=== PATIENT | male | born 1995 | race Caucasian/White ===

== ENCOUNTER 2017-09-22 21:59 | Emergency (ER) | payer OTHER, SELFPAY ==
[~2017-09-22] VITALS: Ht 170.2 cm; Wt 54.5 kg
[2017-09-22] MEDS ORDERED: MORPHINE 4 MG/ML 1ML SYRINGE IV PRN (22:30)
[2017-09-22] MEDS ORDERED: NS 1,000 ML IV ONE (22:30)
[2017-09-22] MEDS ORDERED: ONDANSETRON 4MG/2ML VIAL (J2405) IV ONE (22:30)
[2017-09-22 23:11] LABS: BASO # 0.1 10^3/uL (0.0-0.2); BASO % 0.4 % (0.0-1.0); EOS # 0.1 10^3/uL (0.0-0.50); IMMATURE GRANULOCYTE % 0.3 % (0-0); LYMPH # 2.2 10^3/uL (1.5-6.5); LYMPH % 19.4 % (24.0-44.0); MEAN CORPUSCULAR VOLUME 91.3 fl (80.0-96.0); MONO # 0.8 10^3/uL (0.0-0.8); MONO % 6.6 % (0.0-5.0); NEUTROPHILS # 8.2 10^3/uL (1.8-7.7); NEUTROPHILS % 72.3 % (36.0-66.0); PLATELET COUNT, AUTOMATED 318 10^3/uL (150-450); RED CELL DISTRIBUTION WIDTH 12.5 % (11.5-14.5); WHITE BLOOD COUNT 11.3 10^3/uL (4.0-10.0)
[2017-09-22 23:21] LABS: INR 1.07
[2017-09-22 23:40] LABS: ALBUMIN 4.5 GM/DL (3.2-5.2); ALBUMIN/GLOBULIN RATIO 1.41 (1.00-1.93); ALKALINE PHOSPHATASE 80 U/L (45-117); ALT/SGPT 22 U/L (12-78); AMYLASE 59 U/L (25-115); ANION GAP 7 MEQ/L (8-16); AST/SGOT 13 U/L (7-37); BILIRUBIN,DIRECT 0.3 MG/DL (0.0-0.2); BILIRUBIN,TOTAL 1.4 MG/DL (0.2-1.0); BLOOD UREA NITROGEN 11 MG/DL (7-18); CALCIUM LEVEL 9.3 MG/DL (8.5-10.1); CARBON DIOXIDE LEVEL 27 MEQ/L (21-32); CHLORIDE LEVEL 108 MEQ/L (98-107); GLUCOSE, FASTING 114 MG/DL (70-105); POTASSIUM SERUM 3.7 MEQ/L (3.5-5.1); SODIUM LEVEL 142 MEQ/L (136-145); TOTAL PROTEIN 7.7 GM/DL (6.4-8.2)
[2017-09-22] MEDS ORDERED: ISOVUE-370 76% 100ML VIAL (Q9967) As Ordered ONE (23:42)
--- NOTE | 2017-09-23 01:00 | REPUSA ---
CLINICLAL HISTORY: Pain TECHNIQUE: Axial images, with sagittal and coronal reconstructions COMMENTS: The included bony structure is uniform density, with no evidence of destruction or mass. Ve rtebral bodies are intact in height, normally aligned, and reveal no significant end plate hypertrophy.There is no disc space narrowing, or evidence of disc her niation. The dorsal elements reveal no defect, deformity or degenerative change. No mass is seen and there is no foraminal or spinal canal impingement. IMPRESSION: Negative CT Spine Thank you for the referral of this patient.
[2017-09-23] MEDS ORDERED: NORCO 5/325MG TABLET (BULK FOR ED) PO ONE (01:30)
[2017-09-23] MEDS ORDERED: KEFL500C17 PO (01:30)
[2017-09-23] MEDS ORDERED: POLYSPORIN TOPICAL OINTMENT 15GM As Ordered ONE (02:04)
[2017-09-23 02:27] VITALS: BP 120/78
--- NOTE | 2017-09-23 07:44 | REPUSA ---
CLINICAL HISTORY: Chest, abdominal pain. TECHNIQUE: Multiple axial, sagittal and coronal CT images were obtained through the chest, abdomen an d pelvis with IV contrast material. COMMENTS: There is no evidence of pleural or parenchymal mass. There are no pleural effusions. There is no evid ence of hilar or mediastinal lymphadenopathy. Specifically, there is no evidence for paratracheal and supraclavicular adenopathy. There is no evidence for a chest or abdominal wall nodule or mass. The h eart and great vessels are within normal limits. The liver is of uniform attenuation without mass or defect. The gallbladder is within normal limits. There is no intrahepatic or extrahepatic biliary ductal dilatation. The spleen is normal. The pancrea s is of normal contour and attenuation characteristics. There is no evidence of adrenal mass. Both kidneys demonstrate prompt and equal nephrograms. The kidn eys are normal in size, shape and configuration. There is no evidence of renal mass. There is no hydr oureter or hydronephrosis. There is no bowel wall thickening. Sigmoid diverticulosis is present. No evidence for small or large bowel obstruction. There is no evidence of abdominal ascites or lymphadenopathy. There is no evidence of intrinsic or extrinsic bladder mass. There is no pelvic ascites or lymphadeno john. The bony structures are free of lytic or blastic lesions. IMPRESSION: No evidence of acute chest, abdominal or pelvic pathology. Thank you for your kind referral of this patient.
--- NOTE | 2017-09-23 11:08 | REP ---
Clinical: Trauma . Comparison: 08/23/2015 . Technique: Supine view of the chest. Findings: The mediastinum and cardiac silhouette are normal. The lung [place] are clear and without acute consolidation, effusion, or pneumothorax. The skeletal structures are intact and normal. Impression: 1. No acute cardiopulmonary process. Signed by Arben Kruse MD 09/23/2017 11:00 A
--- NOTE | 2017-09-23 11:09 | REP ---
Clinical: Trauma. Technique: AP and lateral views of the right and left foot. Findings: No acute fracture dislocation. Skeletal structures, joint spaces, and surrounding soft tissues appear normal. No subcutaneous emphysema or radiodense foreign body. Impression: Normal bilateral foot radiographs. Signed by Arben Kruse MD 09/23/2017 11:00 A
--- NOTE | 2017-09-23 11:10 | REP ---
Clinical: Trauma. Technique: AP and lateral views of the right and left tibia / fibula. Findings: No acute fracture dislocation. Skeletal structures, joint spaces, and surrounding soft tissues are normal for age. Incidental note is made of a 3 mm lytic cortical defect along the distal right fibular shaft which appears benign. Impression: No acute fracture or dislocation. Signed by Arben Kruse MD 09/23/2017 11:02 A
--- NOTE | 2017-09-23 11:12 | REP ---
Clinical: Trauma. Technique: Neutral and frog lateral views of the right and left femur. Findings: No acute fracture or dislocation. Skeletal structures, joint spaces, and surrounding soft tissues are normal. No subcutaneous emphysema or radiodense foreign body. Impression: No acute fracture or dislocation. Signed by Arben Kruse MD 09/23/2017 11:03 A
== END 2017-09-23 02:29 | disposition home or self-care (01) ==
LOC: M ED 21:59
DX: Z04.1 Encounter for examination and observation following transport accident (principal); S00.81XA Abrasion of other part of head, initial encounter; S80.811A Abrasion, right lower leg, initial encounter; S80.812A Abrasion, left lower leg, initial encounter; V03.10XA Pedestrian on foot injured in collision with car, pick-up truck or van in traffic accident, initial encounter; Y92.410 Unspecified street and highway as the place of occurrence of the external cause; Y93.89 Activity, other specified; Y99.8 Other external cause status
CPT/HCPCS: 70450; 71010; 71260; 72125; 73552; 73590; 73620; 74177; 80048; 80076; 82150; 82550; 82553; 83605; 83690; 85025; 85610; 85730; 86850; 86900; 86901; 93041; 94760; 96374; 96375; 99285; G0480; J2405; Q9967

== ENCOUNTER 2017-09-29 09:03 | Emergency (ER) | payer SELFPAY ==
[~2017-09-29] VITALS: Ht 167.6 cm; Wt 59.1 kg
[2017-09-29 09:03] VITALS: BP 127/65
[~2017-09-29 09:03] MED LIST: KEFL500C17 PO
== END 2017-09-29 10:45 | disposition left against medical advice (07) ==
LOC: M ED 09:03
DX: Z53.21 Procedure and treatment not carried out due to patient leaving prior to being seen by health care provider (principal)

== ENCOUNTER 2019-11-01 05:06 | Emergency (ER) | payer MEDICAID, OTHER, SELFPAY ==
[~2019-11-01] VITALS: Ht 167.6 cm; Wt 54.5 kg
[2019-11-01 06:04] LABS: BASO # 0.1 10^3/uL (0.0-0.2); BASO % 0.3 % (0.0-1.0); EOS # 0.1 10^3/uL (0.0-0.5); EOS % 0.8 % (0.0-3.0); HEMATOCRIT 46.3 % (42.0-52.0); HEMOGLOBIN 15.5 g/dl (13.5-17.5); LYMPH % 10.8 % (24.0-44.0); MEAN CORPUSCULAR HEMOGLOBIN 30.6 pg (27.0-33.0); MEAN CORPUSCULAR HGB CONC 33.5 g/dl (32.0-36.5); MEAN CORPUSCULAR VOLUME 91.3 fl (80.0-96.0); MONO # 1.5 10^3/uL (0.0-0.8); MONO % 8.1 % (0.0-5.0); NEUTROPHILS # 14.7 10^3/uL (1.5-8.5); NEUTROPHILS % 79.6 % (36.0-66.0); PLATELET COUNT, AUTOMATED 265 10^3/uL (150-450); RED BLOOD COUNT 5.07 10^6/uL (4.30-6.10); WHITE BLOOD COUNT 18.4 10^3/uL (4.0-10.0)
[2019-11-01 06:30] LABS: ALT/SGPT 20 U/L (12-78); BILIRUBIN,DIRECT 0.3 MG/DL (0.0-0.2); BILIRUBIN,TOTAL 1.4 MG/DL (0.2-1.0); LIPASE 215 U/L (73-393); TOTAL PROTEIN 6.9 GM/DL (6.4-8.2)
[2019-11-01 06:31] LABS: APPEARANCE, URINE MANUAL TURBID (CLEAR); COLOR, URINE MANUAL RED (YELLOW); SPECIFIC GRAVITY,URINE MANUAL 1.024 (1.002-1.035)
[2019-11-01 06:32] LABS: BILIRUBIN, URINE MANUAL OBSCURED (NEGATIVE); BLOOD URINE MANUAL POSITIVE (NEGATIVE); GLUCOSE, URINE (UA) MANUAL NEGATIVE (NEGATIVE); KETONE, URINE MANUAL OBSCURED mg/dL (NEGATIVE); NITRITE, URINE MANUAL OBSCURED (NEGATIVE); UROBILINOGEN, URINE MANUAL OBSCURED mg/dl (NORMAL)
[2019-11-01 06:34] LABS: PROTEIN, URINE MANUAL 2+ mg/dL (NEGATIVE)
[2019-11-01 06:35] LABS: LEUKOCYTE ESTERASE, URINE MAN POSITIVE (NEGATIVE)
[2019-11-01 06:36] LABS: RBC, URINE TNTC /hpf (0-3); WBC, URINE 20-30 /hpf (0-3)
[2019-11-01 06:37] LABS: BACTERIA, URINE SMALL AMOUNT; SQUAMOUS EPITHELIAL CELL URINE SMALL AMOUNT /hpf (SMALL AMT)
[2019-11-01 06:38] LABS: HYALINE CAST, URINE NONE SEEN /lpf (0-1)
[2019-11-01] MEDS ORDERED: ONDANSETRON 4MG/2ML VIAL (J2405) IV ONE (06:45)
[2019-11-01] MEDS ORDERED: NS 1,000 ML IV ONE (06:45)
--- NOTE | 2019-11-01 07:28 | REPVR ---
PROCEDURE INFORMATION: Exam: CT Abdomen And Pelvis Without Contrast Exam date and time: 11/01/2019 6:46 AM Age: 24 years old Clinical indication: Abdominal pain; Flank; Right; Additional info: R flank pain, hematuria TECHNIQUE: Imaging protocol: Computed tomography of the abdomen and pelvis without contrast. Radiation optimization: All CT scans at this facility use at least one of these dose optimization techniques: automated exposure control; mA and/or kV adjustment per patient size (includes targeted exams where dose is matched to clinical indication); or iterative reconstruction. COMPARISON: CT ABD PELVIS WITH CONTRAST 09/22/2017 11:55 PM FINDINGS: Detailed evaluation of the abdominal and pelvic viscera is somewhat limited in the absence of intravenous contrast. Lungs: Mild parenchymal stranding in the right lower lobe. Liver: No focal hepatic mass. Gallbladder and bile ducts: No cholelithiasis or biliary ductal dilatation. Pancreas: No pancreatic mass or ductal dilatation. Spleen: No splenomegaly. Adrenals: Unremarkable adrenals. Kidneys and ureters: Normal renal morphology. 1 mm nonobstructing bilateral renal calculi. Stomach and bowel: Mild wall thickening in the decompressed stomach. Mild small bowel dilatation without a focal transition zone. Prominent stool and diverticula, without pericolonic inflammation. Appendix: Appendix not visualized. Intraperitoneal space: No free fluid. Vasculature: Normal caliber of the abdominal aorta. Lymph nodes: Subcentimeter lymph nodes. Bladder: Nondistended bladder with mild wall thickening. Reproductive: Unremarkable as visualized. Bones/joints: No acute osseous pathology. IMPRESSION: 1. 1 mm nonobstructing bilateral renal calculi. 2. Nondistended bladder with mild wall thickening. Electronically signed by: Surendra Gandhi On 11/01/2019 07:28:11 AM
[2019-11-01] MEDS ORDERED: cefTRIAXone SOD 1 GM in D5W MINI-BAG PLUS 50 ML IV ONE (08:15)
[2019-11-01] MEDS ORDERED: PYRI1TAB5 PO (08:32)
[2019-11-01] MEDS ORDERED: KEFL500C17 PO (08:32)
[2019-11-01] MEDS ORDERED: ACETAMINOPHEN TAB 650MG DOSE (2X325MG) As Ordered ONE (08:58)
[2019-11-01] MEDS ORDERED: ACETAMINOPHEN TAB 650MG DOSE (2X325MG) PO ONE (09:00)
[2019-11-01 09:23] LABS: CHLAMYDIA DNA AMPLIFICATION NEGATIVE (NEGATIVE); GC DNA AMPLIFICATION NEGATIVE (NEGATIVE)
[2019-11-01 09:45] VITALS: BP 128/60
== END 2019-11-01 10:16 | disposition home or self-care (01) ==
LOC: M ED 05:06
DX: N39.0 Urinary tract infection, site not specified (principal); R31.9 Hematuria, unspecified; L73.9 Follicular disorder, unspecified; K25.9 Gastric ulcer, unspecified as acute or chronic, without hemorrhage or perforation; F17.210 Nicotine dependence, cigarettes, uncomplicated
CPT/HCPCS: 74176; 80047; 80076; 81000; 83605; 83690; 85025; 86780; 87491; 87591; 93041; 96361; 96365; 96375; 99285; J0696; J2405

== ENCOUNTER 2021-02-07 08:01 | Emergency (ER) | payer MEDICAID, OTHER ==
[~2021-02-07] VITALS: Ht 167.6 cm; Wt 54.5 kg
[~2021-02-07 08:01] MED LIST changes: +PYRI1TAB5 PO
[2021-02-07] MEDS ORDERED: NS 1,000 ML IV ONE (09:00)
[2021-02-07 09:29] LABS: BASO # 0.1 10^3/uL (0.0-0.2); BASO % 0.4 % (0.0-1.0); EOS # 0.1 10^3/uL (0.0-0.5); HEMATOCRIT 43.3 % (42.0-52.0); HEMOGLOBIN 14.3 g/dl (13.5-17.5); LYMPH # 1.2 10^3/uL (1.5-5.0); LYMPH % 9.1 % (24.0-44.0); MEAN CORPUSCULAR HEMOGLOBIN 30.7 pg (27.0-33.0); MEAN CORPUSCULAR VOLUME 92.9 fl (80.0-96.0); MONO # 0.9 10^3/uL (0.0-0.8); MONO % 6.6 % (2.0-8.0); NEUTROPHILS % 82.5 % (36.0-66.0); PLATELET COUNT, AUTOMATED 277 10^3/uL (150-450); RED BLOOD COUNT 4.66 10^6/uL (4.30-6.10); WHITE BLOOD COUNT 13.4 10^3/uL (4.0-10.0)
--- NOTE | 2021-02-07 09:30 | REP ---
INDICATION: R flank and RLQ pain, h/o kidney stones, s/p appy COMPARISON: 11/01/2019 TECHNIQUE: Axial noncontrast images from the lung bases to the pubic symphysis with coronal and sagittal reformations. This CT examination was performed using the following dose reduction techniques: Automated exposure control, adjustment of mA and/or kv according to the patient's size, and use of iterative reconstruction technique. FINDINGS: A 2 mm calcification is identified likely at the right ureterovesical junction (series 201; image 115). Findings may represent a relatively nonobstructing distal ureteral stone and should be correlated with physical examination and urinalysis. Lung bases are clear. Visualized heart and pericardium normal. Liver, spleen, pancreas, gallbladder, bilateral adrenal glands and left kidney are normal. The enteric system is unremarkable and without obstruction or acute inflammatory process. Normal terminal ileum and cecum identified in the right lower quadrant without right lower quadrant inflammatory stranding or changes.. Pelvis demonstrates normal bladder and age-appropriate uterus/adnexa. No ascites. No free air. No adenopathy. No focal inflammatory stranding. Abdominal aorta without aneurysm. Musculoskeletal structures are intact and without acute osseous abnormality. IMPRESSION: 1. Suspected 2 mm calcification at the right ureterovesical junction. No significant associated hydronephrosis. Correlation with physical examination and urinalysis recommended. 2. Otherwise normal noncontrast CT of the abdomen and pelvis. <Electronically signed by Arben Kruse > 02/07/21 [id number]
[2021-02-07 10:03] LABS: ALBUMIN 3.9 GM/DL (3.2-5.2); ALT/SGPT 19 U/L (12-78); AMYLASE 111 U/L (25-115); BILIRUBIN,DIRECT 0.3 MG/DL (0.0-0.2); BILIRUBIN,TOTAL 1.1 MG/DL (0.2-1.0); BLOOD UREA NITROGEN 11 MG/DL (7-18); CALCIUM LEVEL 8.8 MG/DL (8.5-10.1); CARBON DIOXIDE LEVEL 29 MEQ/L (21-32); CHLORIDE LEVEL 109 MEQ/L (98-107); CREATININE FOR GFR 1.05 MG/DL (0.70-1.30); GLOMERULAR FILTRATION RATE > 60.0 (>60); GLUCOSE, FASTING 96 MG/DL (70-100); LIPASE 236 U/L (73-393); POTASSIUM SERUM 4.3 MEQ/L (3.5-5.1); SODIUM LEVEL 141 MEQ/L (136-145); TOTAL PROTEIN 6.7 GM/DL (6.4-8.2)
[2021-02-07] MEDS ORDERED: FLOM0.4C39 PO (10:11)
[2021-02-07] MEDS ORDERED: IBUP80TA PO (10:12)
[2021-02-07 10:24] VITALS: BP 120/79
== END 2021-02-07 10:26 | disposition home or self-care (01) ==
LOC: EDBD 08:01 → M ED 08:01
DX: N20.1 Calculus of ureter (principal); N23 Unspecified renal colic; E80.6 Other disorders of bilirubin metabolism; F12.10 Cannabis abuse, uncomplicated; K21.9 Gastro-esophageal reflux disease without esophagitis; Z87.442 Personal history of urinary calculi; F17.200 Nicotine dependence, unspecified, uncomplicated; Z88.0 Allergy status to penicillin

== ENCOUNTER → 2021-03-01 | Outpatient (CLI) | payer OTHER ==
[~2021-03-01] MED LIST changes: +FLOM0.4C39 PO; +IBUP80TA PO
--- NOTE | 2021-03-01 08:29 | REP ---
INDICATION: ELEVATED BILIRUBIN. COMPARISON: Comparison CT study February 07, 2021.. TECHNIQUE: The right upper quadrant sonography. FINDINGS: Scanning through the right upper quadrant of the abdomen demonstrates a normal sized, thin-walled gallbladder without evidence of stone or polyp. Common bile duct is normal measuring 0.4 cm in greatest diameter. No focal liver lesion is seen. Liver size is normal. No pancreatic abnormality is observed. No right renal abnormality is seen. There is no evidence of ascites. The right kidney measures 9.6 x 5.6 x 4.4 cm. IMPRESSION: Negative right upper quadrant sonography. <Electronically signed by Hai Arechiga > 03/01/21 [id number]
== END ==
LOC: M RAD 06:57
PROVIDERS: ATTEND Physician Assistant
DX: K82.9 Disease of gallbladder, unspecified (principal)

== ENCOUNTER 2021-10-20 16:11 | Emergency (ER) | payer OTHER ==
[~2021-10-20] VITALS: Ht 167.6 cm; Wt 54.5 kg
[2021-10-20 16:12] VITALS: BP 115/68
== END 2021-10-20 16:17 | disposition left against medical advice (07) ==
LOC: M ED 16:11
DX: Z53.29 Procedure and treatment not carried out because of patient's decision for other reasons (principal)

== ENCOUNTER 2023-03-11 19:05 | Emergency (ER) | payer OTHER ==
[~2023-03-11] VITALS: Ht 167.6 cm; Wt 60.9 kg
[2023-03-11] MEDS ORDERED: ONDANSETRON 4MG 2ML VIAL IV ONE (20:15)
[2023-03-11] MEDS ORDERED: KETOROLAC 30 MG/ML 1ML VIAL IV ONE (20:15)
[2023-03-11] MEDS ORDERED: NS 1,000 ML IV ONE ×2 (20:15→21:40)
[2023-03-11 20:49] LABS: BASO % 0.2 % (0.0-1.0); HEMATOCRIT 46.9 % (42.0-52.0); HEMOGLOBIN 15.6 g/dl (13.5-17.5); LYMPH # 0.4 10^3/uL (1.5-5.0); LYMPH % 2.1 % (24.0-44.0); MEAN CORPUSCULAR HEMOGLOBIN 30.6 pg (27.0-33.0); MEAN CORPUSCULAR HGB CONC 33.3 g/dl (32.0-36.5); MONO # 1.2 10^3/uL (0.0-0.8); MONO % 5.7 % (2.0-8.0); NEUTROPHILS # 18.7 10^3/uL (1.5-8.5); NEUTROPHILS % 91.3 % (36.0-66.0); PLATELET COUNT, AUTOMATED 302 10^3/uL (150-450); WHITE BLOOD COUNT 20.5 10^3/uL (4.0-10.0)
[2023-03-11 21:16] LABS: LIPASE 31 U/L (12-53)
[2023-03-11 21:18] LABS: ALBUMIN 4.6 G/DL (3.2-5.2); ALKALINE PHOSPHATASE 77 U/L (46-116); ALT/SGPT 18 U/L (7.0-40); AST/SGOT 17 U/L (<34); BLOOD UREA NITROGEN 13 MG/DL (9-23); CALCIUM LEVEL 8.9 MG/DL (8.5-10.1); CARBON DIOXIDE LEVEL 25 MMOL/L (20-31); CHLORIDE LEVEL 107 MMOL/L (98-107); CREATININE FOR GFR 0.75 MG/DL (0.70-1.30); GLOMERULAR FILTRATION RATE > 60.0 (>60); GLUCOSE, FASTING 91 MG/DL (60-100); POTASSIUM SERUM 3.7 MMOL/L (3.5-5.1); SODIUM LEVEL 144 MMOL/L (136-145); TOTAL PROTEIN 7.1 G/DL (5.7-8.2)
[2023-03-11] MEDS ORDERED: ISOVUE-370 76% 100ML VIAL As Ordered ONE (21:22)
[2023-03-11] MEDS ORDERED: PROMETHAZINE 25 MG TAB PO ONE (23:35)
[2023-03-11 23:41] LABS: BASO % 0.2 % (0.0-1.0); EOS % 0.1 % (0.0-3.0); HEMATOCRIT 40.5 % (42.0-52.0); HEMOGLOBIN 13.7 g/dl (13.5-17.5); LYMPH # 0.6 10^3/uL (1.5-5.0); LYMPH % 3.7 % (24.0-44.0); MEAN CORPUSCULAR HEMOGLOBIN 31.1 pg (27.0-33.0); MEAN CORPUSCULAR HGB CONC 33.8 g/dl (32.0-36.5); MEAN CORPUSCULAR VOLUME 91.8 fl (80.0-96.0); MONO # 0.8 10^3/uL (0.0-0.8); NEUTROPHILS # 13.8 10^3/uL (1.5-8.5); NEUTROPHILS % 90.5 % (36.0-66.0); PLATELET COUNT, AUTOMATED 263 10^3/uL (150-450); RED BLOOD COUNT 4.41 10^6/uL (4.30-6.10); WHITE BLOOD COUNT 15.2 10^3/uL (4.0-10.0)
[2023-03-12] MEDS ORDERED: MORPHINE 4 MG/ML 1ML VIAL IV ONE (00:10)
[2023-03-12] MEDS ORDERED: PANTOPRAZOLE 40MG VIAL IV ONE (00:30)
[2023-03-12] MEDS ORDERED: METOCLOPRAMIDE INJ 10MG/2ML VIAL IV ONE (00:50)
[2023-03-12 01:30] VITALS: BP 107/53
[2023-03-12] MEDS ORDERED: PROM25TA12 PO (01:33)
[2023-03-12] MEDS ORDERED: ONDA4TAB6 PO (01:33)
== END 2023-03-12 01:43 | disposition home or self-care (01) ==
LOC: M ED 19:05 → EDBD 19:05 → M ED 03-12 01:43
DX: R10.9 Unspecified abdominal pain (principal); R11.2 Nausea with vomiting, unspecified; R19.7 Diarrhea, unspecified; M54.9 Dorsalgia, unspecified; Z88.0 Allergy status to penicillin; Z79.899 Other long term (current) drug therapy
CPT/HCPCS: 74177; 80053; 83605; 83690; 85025; 87040; 87486; 87581; 87633; 87798; 96374; 96375; 99284; C9113; J1885; J2405; J2765; Q9967

== ENCOUNTER → 2023-03-13 | Outpatient (REF) | payer OTHER ==
[~2023-03-13] MED LIST changes: +ONDA4TAB6 PO; +PROM25TA12 PO
== END ==
LOC: M LAB REF 14:04
PROVIDERS: ATTEND Physician Assistant
DX: K21.9 Gastro-esophageal reflux disease without esophagitis (principal); R11.10 Vomiting, unspecified; R13.10 Dysphagia, unspecified

== ENCOUNTER → 2023-06-24 | Outpatient (REF) | payer OTHER ==
[2023-06-24 17:28] LABS: BASO # 0.1 10^3/uL (0.0-0.2); BASO % 0.8 % (0.0-1.0); EOS # 0.2 10^3/uL (0.0-0.5); EOS % 3.1 % (0.0-3.0); HEMATOCRIT 45.1 % (42.0-52.0); HEMOGLOBIN 14.6 g/dl (13.5-17.5); LYMPH % 30.3 % (24.0-44.0); MEAN CORPUSCULAR HEMOGLOBIN 29.9 pg (27.0-33.0); MEAN CORPUSCULAR HGB CONC 32.4 g/dl (32.0-36.5); MEAN CORPUSCULAR VOLUME 92.2 fl (80.0-96.0); MONO # 0.6 10^3/uL (0.0-0.8); MONO % 8.6 % (2.0-8.0); NEUTROPHILS # 3.7 10^3/uL (1.5-8.5); NEUTROPHILS % 56.9 % (36.0-66.0); PLATELET COUNT, AUTOMATED 348 10^3/uL (150-450); RED BLOOD COUNT 4.89 10^6/uL (4.30-6.10); WHITE BLOOD COUNT 6.5 10^3/uL (4.0-10.0)
== END ==
LOC: M LAB REF 16:35
PROVIDERS: ATTEND Physician Assistant
DX: D72.829 Elevated white blood cell count, unspecified (principal); Z13.228 Encounter for screening for other metabolic disorders

== ENCOUNTER 2023-12-26 14:45 | Emergency (ER) | payer OTHER ==
[~2023-12-26] VITALS: Ht 170.2 cm; Wt 68.0 kg
[2023-12-26] MEDS: NS 1,000 ML IV ONE (15:06)
[2023-12-26] MEDS ORDERED: OMEP10CASR PO (15:19)
[2023-12-26] MEDS ORDERED: ONDA4TAB6 PO (17:06)
[2023-12-26 17:25] VITALS: BP 114/56; TEMP 98; O2SAT 100
== END 2023-12-26 23:07 | disposition home or self-care (01) ==
LOC: M ED 14:45 → EDBD 14:45 → M ED 23:07
DX: J11.1 Influenza due to unidentified influenza virus with other respiratory manifestations (principal); K92.0 Hematemesis; K21.9 Gastro-esophageal reflux disease without esophagitis; R10.9 Unspecified abdominal pain; Z79.899 Other long term (current) drug therapy

== ENCOUNTER 2024-01-29 10:25 | Day surgery (SDC) | payer OTHER ==
[~2024-01-29] VITALS: Ht 170.2 cm; Wt 70.1 kg
[~2024-01-29 10:25] MED LIST changes: +OMEP10CASR PO
[2024-01-29] MEDS ORDERED: propofoL 200 MG/20 ML VIAL As Ordered ONE (10:35)
[2024-01-29] MEDS ORDERED: fentaNYL 100 MCG/2 ML INJECTION As Ordered ONE (10:35)
[2024-01-29] MEDS ORDERED: LIDOCAINE 2% 100MG/5ML SDV (FOR ANES.) As Ordered ONE (10:35)
[2024-01-29] MEDS: NS 1,000 ML IV ONE (10:36)
[2024-01-29 11:17] VITALS: BP 113/72; O2SAT 100
== END 2024-01-29 11:28 | disposition home or self-care (01) ==
LOC: M OPP 10:25
PROVIDERS: ATTEND Surgery
DX: K29.70 Gastritis, unspecified, without bleeding (principal); R11.2 Nausea with vomiting, unspecified; Z79.1 Long term (current) use of non-steroidal anti-inflammatories (NSAID); Z79.899 Other long term (current) drug therapy; Z88.0 Allergy status to penicillin
CPT/HCPCS: 43239; 88305; J3010

== ENCOUNTER → 2024-02-10 | Outpatient (CLI) | payer OTHER ==
[~2024-02-10] MED LIST changes: +E-Z-PAQUE 96% w/w SUSP 176GM BTL As Ordered ONE
== END ==
LOC: M RAD 10:10
PROVIDERS: ATTEND Surgery
DX: R10.9 Unspecified abdominal pain (principal); R11.2 Nausea with vomiting, unspecified